=== PATIENT | female | born 1980 | race Caucasian/White ===

== ENCOUNTER 2018-07-20 10:24 | Emergency (ER) | payer MEDICAID ==
[~2018-07-20] VITALS: Ht 157.5 cm; Wt 70.8 kg
[2018-07-20 10:54] LABS: Basophils # (auto) 0 uL; Basophils % (auto) 0.3 % (0.0-2.0); Eosinophils # (auto) 0 uL; Eosinophils % (auto) 0.5 % (0.0-7.0); Hematocrit 40.4 % (36.0-46.0); Hemoglobin 13.9 g/dL (12.2-16.2); Lymphocytes # (auto) 1.3 uL; Lymphocytes % (auto) 15.9 % (10.0-50.0); Mean Corpuscular Hemoglobin 30.1 pg (28.0-32.0); Mean Corpuscular Hgb Conc. 34.5 g/dL (32.0-36.0); Mean Corpuscular Volume 87.1 fL (80.0-100.0); Monocytes # (auto) 0.2 uL; Monocytes % (auto) 2.2 % (0.0-12.0); Neutrophils # (auto) 6.5 uL; Neutrophils % (auto) 81.1 % (37.0-80.0); Platelet Count (auto) 190 10^3/uL (140-450); Red Blood Cells 4.64 10^6/uL (4.0-5.20); Red Cell Distribution Width 12.9 % (11.8-14.3); White Blood Cell 8.1 10^3/uL (4.4-10.8)
[2018-07-20 10:59] VITALS: BP 116/73
[2018-07-20 11:12] LABS: Albumin 3.1 g/dL (3.4-5.0); BUN/Creatinine Ratio 9.1; Calcium 8.1 mg/dL (8.5-10.1); Potassium 3.7 mmol/L (3.5-5.1)
[2018-07-20 11:15] LABS: Bilirubin, Total 0.3 mg/dL (0.2-1.0)
== END 2018-07-20 11:30 | disposition home or self-care (01) ==
LOC: ER 10:24
DX: O26.892 Other specified pregnancy related conditions, second trimester (principal); T78.40XA Allergy, unspecified, initial encounter
CPT/HCPCS: 36415; 80053; 85025

== ENCOUNTER 2018-10-15 22:12 | Observation (INO) | payer MEDICAID | END 2018-10-16 00:05 | disposition home or self-care (01) | DRG 566 | LOC: LDRP 22:12 | PROVIDERS: ADMIT Obstetrics & Gynecology; ATTEND Obstetrics & Gynecology | DX: O62.9 Abnormality of forces of labor, unspecified (principal); O09.522 Supervision of elderly multigravida, second trimester; Z87.891 Personal history of nicotine dependence; Z3A.26 26 weeks gestation of pregnancy | CPT/HCPCS: G0378 ×2 ==